=== PATIENT | male | born 1970 | race Caucasian/White ===

== ENCOUNTER → 2019-03-08 | Outpatient (CLI) | payer OTHER ==
[~2019-03-08] MED LIST: IOPAMIDOL (ISOVUE-300) 100 ML BTL ONE
== END ==
LOC: FIMAGING 09:23
PROVIDERS: ATTEND Urology
DX: C61 Malignant neoplasm of prostate (principal); R59.0 Localized enlarged lymph nodes; K57.30 Diverticulosis of large intestine without perforation or abscess without bleeding; K59.00 Constipation, unspecified
CPT/HCPCS: 74177; 78306; A9503; Q9967